=== PATIENT | male | born 1970 | race Asian ===

== ENCOUNTER → 2018-06-07 16:14 | Outpatient (CLI) | payer OTHER, SELFPAY ==
--- NOTE | 2018-06-10 08:10 | PM.PFT.1 ---
Pulmonary Function Test Referral & Results Date Patient Seen: 06/07/18 Indication: Asthma Results: The spirometry demonstrates an FVC of 3.87 L which is 70% of predicted. The FEV1 was measured at 2.85 L which is 74% of predicted. The FEV1/FVC ratio was 70 for which is 94% of predicted. Following the administration of bronchodilator there was no appreciable change. Lung volumes show an SVC of 3.85 L which is 80% of predicted. The diffusing capacity was measured at 32.51 which is 104% of predicted. The maximum voluntary ventilation was normal. Interpretation: This study demonstrates mild obstructive lung disease without significant benefit following bronchodilator administration
== END ==
PROVIDERS: Visit Provider Radiology Diagnostic Radiology
DX: J44.9 Chronic obstructive pulmonary disease, unspecified (principal)
CPT/HCPCS: 94010; 94060; 94726; 94729

== ENCOUNTER → 2021-01-15 09:55 | Outpatient (CLI) | payer OTHER, SELFPAY ==
[2021-01-15] MEDS: COVID-19 VACC #1, MRNA(MOD) 100 MCG/0.5 ML VIAL IM (10:03)
== END ==
PROVIDERS: PCP Family Medicine; Visit Provider Internal Medicine
DX: Z23 Encounter for immunization (principal)
CPT/HCPCS: 0011A; 91301

== ENCOUNTER → 2021-01-15 10:18 | Outpatient (CLI) | payer OTHER, SELFPAY ==
[2021-01-15 11:06] LABS: Add Manual Diff / Slide Review NO; Basophils Absolute Auto 0 /uL (0-100); Basophils Percent Auto 0.5 % (0-2); Eosinophils Absolute Auto 400 /uL (0-450); Eosinophils Percent Auto 5.9 % (2-4); Hematocrit 47.1 % (41-53); Hemoglobin 15.2 g/dL (13.5-17.5); Lymphocytes Absolute Auto 1500 /uL (1100-4500); Lymphocytes Percent Auto 20.6 % (25-40); Mean Corpuscular HGB Conc 32.3 % (30-36); Mean Corpuscular Hemoglobin 26.7 PG (26-34); Mean Corpuscular Volume 82.5 fL (80-100); Monocytes Absolute Auto 700 /uL (0-900); Monocytes Percent Auto 8.8 % (3-14); Neutrophils Absolute Auto 4700 /uL (1500-7000); Neutrophils Percent Auto 64.2 % (50-75); Platelet Count 267 X10^3/uL (150-400); Red Blood Cell Count 5.71 X10^6/uL (4.5-5.9); Red Cell Distribution Width 13.4 % (11.6-14.8); White Blood Cell Count 7.4 X10^3/uL (4.5-11.0)
[2021-01-15 11:16] LABS: Alanine Aminotransferase 18 IU/L (<50); Albumin 4.7 g/dL (3.5-5.0); Albumin Globulin Ratio 1.4 (1.0-2.8); Alkaline Phosphatase 39 U/L (38-126); Aspartate Aminotransferase 22 IU/L (17-59); BUN Creatinine Ratio 16.5 (6-22); Bilirubin Total 1.5 mg/dL (0.2-1.3); Blood Urea Nitrogen 16 mg/dL (9-20); Calcium 9.5 mg/dL (8.4-10.2); Carbon Dioxide 30 mmol/L (22-32); Chloride 101 mmol/L (98-107); Cholesterol 229 mg/dL (140-199); Estimated Glomerular Filt Rate > 60.0 mL/min (>60); Globulin 3.3 g/dL (1.7-4.1); Glucose 99 mg/dL (70-100); HDL Cholesterol 39 mg/dL (40-60); HEMOLYSIS < 15 (0-50); LDL Cholesterol Calculated 142 mg/dL (<100); Potassium 3.9 mmol/L (3.4-5.1); Sodium 139 mmol/L (137-145); Triglycerides 241 mg/dL (35-150)
[2021-01-15 11:47] LABS: Prostate Specific Antigen Scrn 0.708 ng/mL (0.1-4.0)
[2021-01-15 11:56] LABS: TSH w/ Reflex to FT4 1.18 uIU/mL (0.47-4.68)
== END ==
PROVIDERS: PCP Family Medicine; Referring Provider Family Medicine; Visit Provider Family Medicine
DX: G47.30 Sleep apnea, unspecified (principal); N40.0 Benign prostatic hyperplasia without lower urinary tract symptoms; Z12.5 Encounter for screening for malignant neoplasm of prostate; E78.5 Hyperlipidemia, unspecified
CPT/HCPCS: 36415; 80053; 80061; 84443; 85025; G0103

== ENCOUNTER → 2021-02-12 09:39 | Outpatient (CLI) | payer OTHER, SELFPAY ==
[2021-02-12] MEDS: COVID-19 VACC #2, MRNA(MOD) 100 MCG/0.5 ML VIAL IM (09:46)
== END ==
PROVIDERS: PCP Family Medicine; Visit Provider Internal Medicine
DX: Z23 Encounter for immunization (principal)
CPT/HCPCS: 0012A; 91301

== ENCOUNTER → 2021-06-06 12:17 | Outpatient (CLI) | payer OTHER, SELFPAY ==
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
--- NOTE | 2021-06-06 12:19 | DI.RAD.S_ITS ---
PROCEDURE: XR ANKLE RT MIN 3V INDICATIONS: R lateral posterior malleolar pain with palp, swelling TECHNIQUE: 3 views of the ankle were acquired. COMPARISON: None. FINDINGS: Bones: No fractures or dislocations. Ankle mortise is normally aligned. No suspicious bony lesions. Soft tissues: Mild soft tissue swelling over lateral malleolus is seen. No tibiotalar joint effusion. Achilles tendon appears normal. IMPRESSION: Mild lateral ankle soft tissue swelling. No acute fracture or dislocation. Dictated by: Wenceslao Lopez M.D. on 06/06/2021 at 12:44 Approved by: Wenceslao Lopez M.D. on 06/06/2021 at 12:45
== END ==
PROVIDERS: PCP Family Medicine; Referring Provider Nurse Practitioner; Visit Provider Nurse Practitioner
DX: S49.91XA Unspecified injury of right shoulder and upper arm, initial encounter (principal); S69.92XA Unspecified injury of left wrist, hand and finger(s), initial encounter; M25.511 Pain in right shoulder; M19.012 Primary osteoarthritis, left shoulder; M79.89 Other specified soft tissue disorders; M25.572 Pain in left ankle and joints of left foot; V19.9XXA Pedal cyclist (driver) (passenger) injured in unspecified traffic accident, initial encounter
CPT/HCPCS: 73030; 73130; 73610